=== PATIENT | male | born 1990 | race African-American/Black ===

== ENCOUNTER 2019-12-20 12:22 | Emergency (ER) | payer OTHER ==
[2019-12-20 12:44] VITALS: BP 133/86; PULSE 86; TEMP 98.9; BMI 25.8
[2019-12-20] MEDS ORDERED: IBUPROFEN 600 MG TABLET (FP) PO ONE ×2 (13:20→13:24)
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
== END 2019-12-20 13:51 | disposition home or self-care (01) ==
LOC: JERFT 12:22
DX: S83.8X1A Sprain of other specified parts of right knee, initial encounter (principal); V03.90XA Pedestrian on foot injured in collision with car, pick-up truck or van, unspecified whether traffic or nontraffic accident, initial encounter; Y92.481 Parking lot as the place of occurrence of the external cause; Y93.89 Activity, other specified; Y99.8 Other external cause status
CPT/HCPCS: 73562-TC-RT-FY; 99283-25